=== PATIENT | male | born 1965 | race Caucasian/White ===

== ENCOUNTER 2018-08-08 14:43 | Emergency (ER) | payer MEDICAID ==
[~2018-08-08] VITALS: Ht 182.9 cm; Wt 122.9 kg
[~2018-08-08 14:43] MED LIST: ZOLP10TA5 PO
--- NOTE | 2018-08-08 15:04 | NUR ---
PATIENT PRESENTS TO ED TODAY FOR DIZZINESS AND FEVER PER PATIENT, NADN. HX OF CLL. PATIENT ALSO C/O RLQ PAIN, BILAT LOWER EXT PAIN, AND PAIN IN JOINTS. MD AT BEDSIDE, FAMILY/FRIEND AT BEDSIDE, AWAITING MD ORDERS. CALL LIGHT WITHIN REACH.
[2018-08-08 15:39] LABS: MEAN CORPUSCULAR HEMOGLOBIN 31.1 pg (27.5-34.5); MEAN CORPUSCULAR HGB CONC 32.6 g/dL (33.2-36.2); MEAN CORPUSCULAR VOLUME 95.4 fL (81-97); PLATELET COUNT 268 x10^3/uL (130-400); RED BLOOD COUNT 4.89 x10^6/uL (4.38-5.82); RED CELL DISTRIBUTION WIDTH 14.5 % (9.4-14.8)
[2018-08-08 15:49] LABS: ALBUMIN 3.6 g/dL (3.4-5.0); ANION GAP 5 mmol/L (5-15); CALCIUM 8.3 mg/dL (8.5-10.1); CHLORIDE 108 mmol/L (98-107)
[2018-08-08 15:53] LABS: ALANINE AMINOTRANSFERASE 32 U/L (12-78); ALKALINE PHOSPHATASE 73 U/L (45-117); BILIRUBIN,TOTAL 0.5 mg/dL (0.2-1.0); CREATININE 0.89 mg/dL (0.7-1.3); TOTAL PROTEIN 6.7 g/dL (6.4-8.2)
--- NOTE | 2018-08-08 16:14 | NUR ---
PATIENT PROVIDED URINAL AND AMB TO BATHROOM WITH STEADY GAIT, ATTEMPTED TO URINATE X 2 PAST HOUR. UNABLE TO URINATE AT THIS TIME.
[2018-08-08 16:32] LABS: MD YES
--- NOTE | 2018-08-08 16:36 | NUR ---
UA COLLECTED AND SENT TO LAB.
--- NOTE | 2018-08-08 16:36 | NUR ---
PATIENT TO CT VIA [id number].
[2018-08-08 16:56] LABS: MICROSCOPIC NOT IND
[2018-08-08 17:01] LABS: CULTURE INDICATED? NO
[2018-08-08 17:18] LABS: BASOS#(MANUAL) 0.23 x10^3/uL (0-0.1); BASOS% (MANUAL) 1 % (0-1); LYMPH#(MANUAL) 14.92 x10^3/uL (1-3.4); LYMPHS% (MANUAL) 66 % (22-44); MONOS#(MANUAL) 1.13 x10^3/uL (0.3-2.7); MONOS% (MANUAL) 5 % (2-9); SEG#(MANUAL) 6.33 x10^3/uL (1.8-6.8); SEGS% (MANUAL) 28 % (42-75)
[2018-08-08 17:19] LABS: SMUDGE CELLS 1+
[2018-08-08 17:23] LABS: <PLATELET ESTIMATE> ADEQUATE; <PLT MORPHOLOGY> NORMAL PLT MORPH; <RBC MORPHOLOGY> NORMAL
[2018-08-08] MEDS ORDERED: OMNIPAQUE 350 MG/ML, 100ML BOTTLE ONE (17:32)
--- NOTE | 2018-08-08 17:42 | NUR ---
Patient/Caregiver given discharge instructions and they have confirmed that they understand the instructions. Patient ambulatory with steady gait.
[2018-08-08 17:43] VITALS: BP 169/97
== END 2018-08-08 17:44 | disposition home or self-care (01) ==
LOC: ED 16:33
DX: R10.31 Right lower quadrant pain (principal); I10 Essential (primary) hypertension; C91.10 Chronic lymphocytic leukemia of B-cell type not having achieved remission; Z72.9 Problem related to lifestyle, unspecified; Z91.14 Patient's other noncompliance with medication regimen
CPT/HCPCS: 36415; 74177; 80053; 81003; 83690; 85025; 93005; 99284; Q9967